=== PATIENT | female | born 1975 | race Caucasian/White ===

== ENCOUNTER 2017-01-27 06:17 | Emergency (ER) | payer OTHER ==
--- NOTE | 2017-01-27 06:52 | ER Document Report ---
ED General - General Chief Complaint: Elbow Injury Stated Complaint: WORK INJURY RIGHT ELBOW Time Seen by Provider: 01/27/17 06:48 TRAVEL OUTSIDE OF THE [place] IN LAST 30 DAYS: No - HPI Patient complains to provider of: Right elbow injury Notes: Patient coming in for evaluation of right elbow injury. Patient states that she was at work when a crate of soda pop fell on her she states that she felt a pop in her right elbow now has decreased range of motion. Patient denies any pain in the shoulder denies any pain in the wrist. Upon my evaluation patient is holding her right arm in a 90 angle across her torso. Denies any past medical history denies any fever chills nausea vomiting diarrhea denies any loss consciousness or any other traumatic injuries. - Related Data Allergies/Adverse Reactions: No Known Allergies Allergy (Verified 08/16/15 04:09) Home Medications: Current Home Medications Folic Acid/Mv,Fe,Other Min [One Daily Complete Tablet] 1 tab PO DAILY 01/27/17 [ History] Past Medical History - Social History Smoking Status: Unknown if Ever Smoked Family History: Reviewed & Not Pertinent Patient has suicidal ideation: No Patient has homicidal ideation: No - Past Medical History Cardiac Medical History: Denies: Hx Hypertension Neurological Medical History: Denies: Hx Migraine Endocrine Medical History: Denies: Hx Diabetes Mellitus Type 1, Hx Diabetes Mellitus Type 2 Renal/ Medical History: Denies: Hx Peritoneal Dialysis Skin Medical History: Reports Hx MRSA Infectious Medical History: Reports: Hx MRSA Past Surgical History: Reports: Hx Oral Surgery - teeth extraction - Immunizations Immunizations up to date: Yes Hx Diphtheria, Pertussis, Tetanus Vaccination: Yes Review of Systems - Review of Systems Constitutional: No symptoms reported EENT: No symptoms reported Cardiovascular: No symptoms reported Respiratory: No symptoms reported Gastrointestinal: No symptoms reported Genitourinary: No symptoms reported Female Genitourinary: No symptoms reported Musculoskeletal: Other - Right elbow Skin: No symptoms reported Hematologic/Lymphatic: No symptoms reported Neurological/Psychological: No symptoms reported -: Yes All other systems reviewed and negative Physical Exam - Vital signs Vitals: Temp Pulse Resp BP Pulse Ox 97.7 F 83 18 148/89 H 100 01/27/17 06:23 01/27/17 06:23 01/27/17 06:23 01/27/17 06:23 01/27/17 06:23 Interpretation: Normal - General General appearance: Appears well, Alert - HEENT Head: Normocephalic, Atraumatic Eyes: Normal Pupils: PERRL - Respiratory Respiratory status: No respiratory distress Chest status: Nontender Breath sounds: Normal Chest palpation: Normal - Cardiovascular Rhythm: Regular Heart sounds: Normal auscultation Murmur: No - Abdominal Inspection: Normal Distension: No distension Bowel sounds: Normal Tenderness: Nontender Organomegaly: No organomegaly - Back Back: Normal, Nontender - Extremities General upper extremity: Normal inspection, Tender - Tenderness to palpation of the right elbow with decreased range of motion due to pain active and passive. No traumatic findings no deformities capillary refill distal to the elbow is intact, Normal color, Normal ROM, Normal temperature General lower extremity: Normal inspection, Nontender, Normal color, Normal ROM , Normal temperature, Normal weight bearing. No: González's sign - Neurological Neuro grossly intact: Yes Cognition: Normal Orientation: AAOx4 [place] Coma Scale Eye Opening: Spontaneous Jerry Coma Scale Verbal: Oriented [place] Coma Scale Motor: Obeys Commands Jerry Coma Scale Total: 15 Speech: Normal Motor strength normal: LUE, RUE, LLE, RLE Sensory: Normal - Psychological Associated symptoms: Normal affect, Normal mood - Skin Skin Temperature: Warm Skin Moisture: Dry Skin Color: Normal Course - Re-evaluation Re-evalutation: 01/27/17 14:55 X-rays negative more likely sprain or contusion patient will be discharged home - Vital Signs Vital signs: Temp Pulse Resp BP Pulse Ox 98.9 F 84 20 129/83 H 98 01/27/17 08:28 01/27/17 08:28 01/27/17 08:28 01/27/17 08:28 01/27/17 08:28 Procedures - Immobilization Right Arm Immobilizer type: Sling Performed by: PCT Post-Proc Neuro Vasc Exam: Normal Alignment checked and good: No Discharge - Discharge Clinical Impression: Right elbow pain Condition: Good Disposition: HOME, SELF-CARE Instructions: Contusion ([facility]), Use of [id number] Ibuprofen ([facility]), Ice Massage ([facility]), Temporary Sling ([facility]) Additional Instructions: Your x-ray today is negative for any signs of fracture. You may have a deep contusion or sprain of your elbow. At this time I recommend to continue to move her elbow go through range of motion Tylenol Motrin for pain control return to ER symptoms worsen follow-up with your primary Care physician in 1 week if pain continues Prescriptions: Ibuprofen [Motrin 600 Mg Tablet] 600 mg PO TID #30 tablet Forms: Return to Work
--- NOTE | 2017-01-27 07:53 | RADIOLOGY REPORT (SQ) ---
EXAM DESCRIPTION: ELBOW RIGHT OVER 2 VIEWS COMPLETED DATE/TIME: 01/27/2017 7:42 am REASON FOR STUDY: right elbow COMPARISON: None. NUMBER OF VIEWS: Four views. TECHNIQUE: AP, lateral, and both oblique radiographic images acquired of the right elbow. LIMITATIONS: None. FINDINGS: MINERALIZATION: Normal. BONES: No acute fracture or dislocation. No worrisome bone lesions. JOINT: No effusion. SOFT TISSUES: No soft tissue swelling. No foreign body. OTHER: No other significant finding. IMPRESSION: NEGATIVE STUDY OF THE RIGHT ELBOW. NO RADIOGRAPHIC EVIDENCE OF ACUTE INJURY. TECHNICAL DOCUMENTATION: JOB ID: [id number] [employer]- All Rights Reserved
[2017-01-27 08:29] VITALS: BP 129/83
== END 2017-01-27 08:30 | disposition home or self-care (01) ==
LOC: ER 06:17
DX: M25.521 Pain in right elbow (principal); W20.8XXA Other cause of strike by thrown, projected or falling object, initial encounter; Y93.89 Activity, other specified; Y92.512 Supermarket, store or market as the place of occurrence of the external cause; Y99.0 Civilian activity done for income or pay
CPT/HCPCS: 99283

== ENCOUNTER 2017-09-01 14:42 | Emergency (ER) | payer SELFPAY ==
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
[2017-09-01 16:57] LABS: ABSOLUTE BASOPHILS # (AUTO) 0.1 10^3/uL (0.0-0.2); ABSOLUTE EOSINOPHILS # (AUTO) 0.2 10^3/uL (0.0-0.6); ABSOLUTE LYMPHOCYTES (AUTO) 2.6 10^3/uL (0.5-4.7); ABSOLUTE MONOCYTES (AUTO) 0.5 10^3/uL (0.1-1.4); ABSOLUTE NEUT (AUTO) 4.2 10^3/uL (1.7-8.2); BASOPHILS % (AUTO) 1.2 % (0-2); EOSINOPHILS % (AUTO) 2.7 % (0-6); HEMATOCRIT 42.7 % (36.0-47.0); HEMOGLOBIN 14.4 g/dL (12.0-15.5); LYMPHOCYTES % (AUTO) 34.9 % (13-45); MEAN CORPUSCULAR HEMOGLOBIN 30.2 pg (27.0-33.4); MEAN CORPUSCULAR HGB CONC 33.8 g/dL (32.0-36.0); MEAN CORPUSCULAR VOLUME 90 fl (80-97); MONOCYTES % (AUTO) 6.1 % (3-13); PLATELET COUNT 362 10^3/uL (150-450); RED BLOOD COUNT 4.77 10^6/uL (3.72-5.28); RED CELL DISTRIBUTION WIDTH 14.5 % (11.5-14.0); SEGMENTED NEUTROPHILS % (AUTO) 55.1 % (42-78); TOTAL CELLS COUNTED % (AUTO) 100 %; WHITE BLOOD COUNT 7.6 10^3/uL (4.0-10.5)
[2017-09-01 17:21] LABS: ALANINE AMINOTRANSFERASE 25 U/L (9-52); ALBUMIN 4.5 g/dL (3.5-5.0); ALKALINE PHOSPHATASE 93 U/L (38-126); ANION GAP 9 (5-19); ASPARTATE AMINO TRANSFERASE 19 U/L (14-36); BILIRUBIN,DIRECT 0.2 mg/dL (0.0-0.4); BILIRUBIN,TOTAL 0.3 mg/dL (0.2-1.3); BLOOD UREA NITROGEN 11 mg/dL (7-20); CALCIUM 10.5 mg/dL (8.4-10.2); CARBON DIOXIDE 29 mmol/L (22-30); CHLORIDE 102 mmol/L (98-107); GLUCOSE 116 mg/dL (75-110); POTASSIUM 4.3 mmol/L (3.6-5.0); TOTAL PROTEIN 7.5 g/dL (6.3-8.2)
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
[2017-09-01 19:26] VITALS: BP 129/78
== END 2017-09-01 19:28 | disposition home or self-care (01) ==
LOC: ER 14:42
DX: S20.212A Contusion of left front wall of thorax, initial encounter (principal); S30.1XXA Contusion of abdominal wall, initial encounter; T17.928A Food in respiratory tract, part unspecified causing other injury, initial encounter; R07.81 Pleurodynia; R06.02 Shortness of breath; X58.XXXA Exposure to other specified factors, initial encounter; F17.210 Nicotine dependence, cigarettes, uncomplicated
CPT/HCPCS: 36415; 71260; 74177; 80053; 85025; 99284; 99406

== ENCOUNTER 2018-12-19 21:35 | Emergency (ER) | payer SELFPAY ==
[2018-12-20] MEDS ORDERED: IPRATROPIUM/ALBUTEROL 0.5-2.5 MG/3 ML AMPUL NEB ONE (00:56)
--- NOTE | 2018-12-20 01:05 | ER Document Report ---
HPI - HPI Time Seen by Provider: 12/20/18 00:54 Pain Level: 5 Context: Patient is a 43-year-old female presents to the emergency department with a chief complaint of cough. Patient states she was seen here on December 10 for the same symptoms and was given a hydrocodone cough syrup, prednisone and albuterol inhaler. Patient states while on these medications it did seem to help with her symptoms but since completing the course and running out of the cough syrup her symptoms have persisted and worsened. Patient states the cough is about the same but that she cannot get any relief due to its persistence. Patient states she has had a runny nose, chills and a cough that is intermittently productive with green sputum. Patient does smoke a half a pack per day but states she has not been able to smoke since being ill. Patient denies a history of asthma or COPD. - REPRODUCTIVE LMP: 1 mnth Reproductive: DENIES: : Past Medical History - General Information source: Patient - Social History Smoking Status: Current Every Day Smoker Cigarette use (# per day): Yes - 1/2 ppd Smoking Education Provided: Yes Frequency of alcohol use: None Drug Abuse: None Lives with: Family Family History: Arthritis, DM, Malignancy, Thyroid Disfunction. denies: CAD, COPD, CVA, Hyperlipidemia, Hypertension - Past Medical History Cardiac Medical History: Reports: None Pulmonary Medical History: Reports: None EENT Medical History: Reports: None Neurological Medical History: Reports: None Endocrine Medical History: Reports: None. Denies: Hx Diabetes Mellitus Type 1, Hx Diabetes Mellitus Type 2 Renal/ Medical History: Denies: Hx Peritoneal Dialysis Skin Medical History: Reports Hx MRSA Infectious Medical History: Reports: Hx MRSA Past Surgical History: Reports: Hx Oral Surgery - teeth extraction - Immunizations Immunizations up to date: Yes Hx Diphtheria, Pertussis, Tetanus Vaccination: Yes Vertical Provider Document - CONSTITUTIONAL Agree With Documented VS: Yes Exam Limitations: No Limitations Notes: GENERAL: Well-appearing, well-nourished with a persistent cough in triage. HEAD: Atraumatic, normocephalic. EYES: Pupils equal round and reactive to light, extraocular movements intact, sclera anicteric, conjunctiva are normal. ENT: Nares patent, oropharynx clear without exudates. Moist mucous membranes. NECK: Normal range of motion, supple without lymphadenopathy or JVD. LUNGS: Scattered rhonchi, with expiratory wheeze noted in the upper lobes bilaterally. HEART: Regular rate and rhythm without murmurs, rubs or gallops. ABDOMEN: Soft, nontender, normoactive bowel sounds. No guarding, no rebound. No masses appreciated. BACK: No cervical, thoracic, lumbar midline tenderness. No saddle anesthesia, normal distal neurovascular exam. GENITOURINARY: Deferred. EXTREMITIES: Normal range of motion, no pitting or edema. No clubbing or cyanosis. NEUROLOGICAL: Cranial nerves II through XII grossly intact. Normal speech, normal gait. PSYCH: Normal mood, normal affect. SKIN: Warm, Dry, normal turgor, no rashes or lesions noted. - INFECTION CONTROL TRAVEL OUTSIDE OF THE [place] IN LAST 30 DAYS: No Course - Re-evaluation Re-evalutation: 12/20/18 02:05 Patient reports feeling better after receiving breathing treatment. Patient is nontoxic-appearing. Patient's x-ray was negative for pneumonia. Patient's cough is still present but has improved since receiving the breathing treatment. I did inform the patient that her symptoms are consistent with bronchitis. I did inform her that the symptoms can last 3 to 4 weeks and discussed nonpharmacological methods such as honey, teas and avoidance of smok ing cigarettes or secondhand smoke. We will give the patient Tessalon Perles. I will not refill the prescription for the narcotic cough medication at this time. Patient to take home and albuterol inhaler and use as needed for wheezing. Will place patient on Zyrtec as an antihistamine as she is also having rhinorrhea and allergy type symptoms. - Vital Signs Vital signs: Temp Pulse Resp BP Pulse Ox 97.5 F 83 20 147/93 H 95 12/19/18 22:27 12/19/18 22:27 12/19/18 22:27 12/19/18 22:27 12/19/18 22:27 - Diagnostic Test Radiology reviewed: Reports reviewed Radiology results interpreted by me: 12/20/18 02:25 Chest X-Ray 12/20/18 00:56 IMPRESSION: No active disease. Discharge - Discharge Clinical Impression: Bronchitis, Cough Condition: Stable Disposition: HOME, SELF-CARE Additional Instructions: Today presented to the emergency department with cough. Your x-ray did not show pneumonia. Your symptoms are consistent with an acute bronchitis. Bronchitis can last 3 to 4 weeks. Some non-pharmacological therapies that you can use for your cough are throat lozenges, hot tea, honey avoidance of smoking or avoidance of secondhand smoke. I will prescribe you an albuterol inhaler to use as needed for wheezing. Take Tylenol as needed for fever and chills. Please return to the emergency department for shortness of breath, chest pain, bloody sputum, fever or worsening symptoms. Bronchitis You have acute bronchitis. This disease is an infection or inflammation of the air passageways in your lungs. Symptoms usually include cough, low grade fever, shortness of breath, and wheezing. The cough usually persists for a couple of weeks. Most cases of bronchitis get better without antibiotics. We prescribe antibiotics when we believe bacteria are damaging your airways, or if there's high risk the bronchitis will worsen into pneumonia. Increase your fluid intake. A cool mist humidifier may make your lungs more comfortable. An expectorant (cough medicine that loosens phlegm) can help. If you smoke, STOP!!! Recovery from bronchitis can be somewhat slow, but you should see improvement within a day or two. Repeated episodes of bronchitis may result in lung damage -- for example, chronic bronchitis, recurrent pneumonias, or emphysema. Call the doctor if you develop increasing fever, shortness of breath, chest pain, bloody sputum, or otherwise worsen. If you have not improved at all after several days, contact the physician. Prescriptions: Benzonatate [Tessalon Perles 100 mg Capsule] 100 mg PO Q8HP PRN #40 capsule PRN Reason: Cetirizine HCl [Zyrtec 10 mg Tablet] 1 tab PO DAILY #30 tablet Forms: Smoking Cessation Education, Return to Work
--- NOTE | 2018-12-20 02:02 | RADIOLOGY REPORT (SQ) ---
Chest 2 view on 12/20/2018 at 1:49 AM CLINICAL INDICATION: Cough, fever COMPARISON: 12/10/2018 FINDINGS: The lungs are clear. Cardiac, hilar and mediastinal contours are within normal limits. Pulmonary vascularity is within normal limits. No bony abnormality is noted. IMPRESSION: No active disease.
[2018-12-20] MEDS ORDERED: BENZONATATE 100 MG CAPSULE PO ONE (02:10)
[2018-12-20] MEDS ORDERED: ALBUTEROL SULFATE HFA (90 MCG/PUFF) 8 GM MDI (1 MDI/ER DISP) IH ONE (02:10)
[2018-12-20] MEDS ORDERED: DEXAMETHASONE SOD PHOS INJ 10 MG/1 ML VIAL IM ONE (02:12)
[2018-12-20 02:22] VITALS: BP 133/89
== END 2018-12-20 02:38 | disposition home or self-care (01) ==
LOC: ER 21:35
DX: R05 Cough (principal); J40 Bronchitis, not specified as acute or chronic; R09.89 Other specified symptoms and signs involving the circulatory and respiratory systems; R68.83 Chills (without fever); F17.210 Nicotine dependence, cigarettes, uncomplicated; R06.2 Wheezing
CPT/HCPCS: 94640; 99283; 96374; 71046; J1100; J3490; J7620